=== PATIENT | male | born 1960 | race Native Hawaiian/Other Pacific Islander ===

== ENCOUNTER 2020-09-28 09:18 | Outpatient (RCR) | payer MEDICAID, SELFPAY ==
--- NOTE | 2020-09-28 12:00 | HOLTER_ITS ---
APPROVED REPORT Conclusion This is a 48-hour monitor ordered for indication of tachycardia. The patient was in normal sinus rhythm for the majority of the recording with an average heart rate o f 70 bpm (56-117 bpm) There were no episodes of ventricular tachycardia nor any episodes of supraventricular tachycardia. There were rare PACs There were no episodes of atrial fibrillation, no pauses greater than 3 seconds and no evidence of hi gh degree heart block. There were 2 patient triggered events 1 was associated with loss of vision for 1 second and was ass ociated with a single PAC. The second event associated with shortness of breath and chest pain was d uring normal sinus rhythm.
== END 2020-10-24 23:59 | disposition home or self-care (01) ==
LOC: RT 09:18
DX: R00.0 Tachycardia, unspecified (principal)
CPT/HCPCS: 93225; 93226